=== PATIENT | female | born 1950 | race Caucasian/White ===

== ENCOUNTER 2023-01-10 19:59 | Inpatient (IN) | payer MEDICARE ==
[~2023-01-10] VITALS: Ht 160 cm; Wt 65.3 kg
[2023-01-10 19:33] VITALS: BP 127/75; TEMP 98.2; O2SAT 94
[2023-01-10] MEDS ORDERED: REMEDY ESSENTIAL ZINC PASTE 113 GM TOP PRN (20:15)
[2023-01-10] MEDS ORDERED: ENOX40DI SQ (21:34)
[2023-01-10] MEDS ORDERED: PANT40TA49 PO (21:34)
[2023-01-10] MEDS ORDERED: ACET325T53 PO (21:34)
[2023-01-10] MEDS ORDERED: ASPI81TA31 PO (21:34)
[2023-01-10] MEDS ORDERED: LACT296L PO (21:34)
[2023-01-10] MEDS ORDERED: ZOLP5TAB8 PO (21:34)
[2023-01-10] MEDS ORDERED: MAG30ORA14 (21:34)
[2023-01-10] MEDS ORDERED: MAGN400O6 PO (21:34)
[2023-01-10] MEDS ORDERED: THYR90TA12 PO (21:34)
[2023-01-11] MEDS ORDERED: HYDROCODONE/APAP 5-325MG TABLET PO PRN
[2023-01-11 04:00] VITALS: BP 116/50; TEMP 98.1; O2SAT 95
[2023-01-11 07:46] VITALS: BP 119/61; TEMP 97.7; O2SAT 94
[2023-01-11] MEDS: ENOXAPARIN SODIUM 40 MG/0.4 ML DISP.SYRIN SQ SCH (14:00)
[2023-01-11 15:53] VITALS: BP 125/67; TEMP 97.9; O2SAT 94
[2023-01-11] MEDS: PANTOPRAZOLE SODIUM 40 MG TABLET.DR PO SCH ×2 (17:42→20:51)
[2023-01-11] MEDS: ASPIRIN 81 MG TAB.CHEW PO SCH (17:42)
[2023-01-11] MEDS: ENSURE CLEAR 240 ML LIQUID (MIX BERRY) PO SCH (17:48)
[2023-01-11 20:00] VITALS: BP 131/71; TEMP 98; O2SAT 94
[2023-01-12 04:00] VITALS: BP 128/67; TEMP 98.1; O2SAT 93
[2023-01-12] MEDS: THYROID 60 MG TABLET PO SCH (06:40)
[2023-01-12] MEDS: ASPIRIN 81 MG TAB.CHEW PO SCH (08:47)
[2023-01-12] MEDS: PANTOPRAZOLE SODIUM 40 MG TABLET.DR PO SCH ×2 (08:47→20:57)
[2023-01-12] MEDS: ENOXAPARIN SODIUM 40 MG/0.4 ML DISP.SYRIN SQ SCH (08:48)
[2023-01-12] MEDS: ENSURE CLEAR 240 ML LIQUID (MIX BERRY) PO SCH ×3 (09:10→17:11)
[2023-01-12 18:27] VITALS: TEMP 97.2
[2023-01-12] MEDS: ACETAMINOPHEN 325 MG TABLET PO PRN (19:48)
[2023-01-12 20:00] VITALS: BP 125/70; TEMP 97.8; O2SAT 94
[2023-01-13 04:00] VITALS: BP 120/61; TEMP 97.7; O2SAT 96
[2023-01-13] MEDS: THYROID 60 MG TABLET PO SCH (06:23)
[2023-01-13 07:48] VITALS: BP 109/64; TEMP 97.8; O2SAT 95
[2023-01-13] MEDS: ASPIRIN 81 MG TAB.CHEW PO SCH (09:48)
[2023-01-13] MEDS: PANTOPRAZOLE SODIUM 40 MG TABLET.DR PO SCH ×2 (09:48→20:55)
[2023-01-13] MEDS: ENSURE CLEAR 240 ML LIQUID (MIX BERRY) PO SCH ×3 (09:49→17:21)
[2023-01-13] MEDS: ENOXAPARIN SODIUM 40 MG/0.4 ML DISP.SYRIN SQ SCH (09:55)
[2023-01-13] MEDS ORDERED: SIMETHICONE 40 MG/0.6 ML, 30ML BOTTLE PO PRN (15:00)
[2023-01-13] MEDS ORDERED: SIMETHICONE 80 MG TAB.CHEW PO PRN ×2 (15:30)
[2023-01-13 16:00] VITALS: BP 114/66; TEMP 97.8; O2SAT 96
[2023-01-14 05:08] VITALS: BP 121/67; TEMP 97.6; O2SAT 94
[2023-01-14] MEDS: THYROID 60 MG TABLET PO SCH (06:36)
[2023-01-14 08:00] VITALS: BP 110/62; TEMP 97.8; O2SAT 97
[2023-01-14] MEDS: PANTOPRAZOLE SODIUM 40 MG TABLET.DR PO SCH ×2 (08:34→20:30)
[2023-01-14] MEDS: ASPIRIN 81 MG TAB.CHEW PO SCH (08:34)
[2023-01-14] MEDS: ENOXAPARIN SODIUM 40 MG/0.4 ML DISP.SYRIN SQ SCH (08:35)
[2023-01-14] MEDS: ENSURE CLEAR 240 ML LIQUID (MIX BERRY) PO SCH ×3 (08:42→16:09)
[2023-01-14 16:34] VITALS: BP 116/60; TEMP 98; O2SAT 94
[2023-01-14 19:45] VITALS: BP 116/66; TEMP 97.7; O2SAT 95
[2023-01-15] MEDS: ACETAMINOPHEN 325 MG TABLET PO PRN (03:05)
[2023-01-15 06:00] VITALS: BP 98/56; TEMP 97.8; O2SAT 95
[2023-01-15] MEDS: THYROID 60 MG TABLET PO SCH (06:32)
[2023-01-15 08:00] VITALS: BP 101/55; TEMP 97.6; O2SAT 97
[2023-01-15] MEDS: ASPIRIN 81 MG TAB.CHEW PO SCH (08:08)
[2023-01-15] MEDS: PANTOPRAZOLE SODIUM 40 MG TABLET.DR PO SCH ×2 (08:08→20:31)
[2023-01-15] MEDS: ENOXAPARIN SODIUM 40 MG/0.4 ML DISP.SYRIN SQ SCH (08:09)
[2023-01-15] MEDS: ENSURE CLEAR 240 ML LIQUID (MIX BERRY) PO SCH ×3 (08:10→17:00)
[2023-01-15 16:28] VITALS: BP 99/59; TEMP 98.9; O2SAT 97
[2023-01-15 20:20] VITALS: BP 102/61; TEMP 98.6
[2023-01-16 05:10] VITALS: BP 105/70; TEMP 97.8; O2SAT 96
[2023-01-16] MEDS: THYROID 60 MG TABLET PO SCH (06:13)
[2023-01-16 07:47] VITALS: BP 100/65; TEMP 97.7; O2SAT 96
[2023-01-16 08:00] VITALS: BP 98/60; TEMP 97.5; O2SAT 96
[2023-01-16] MEDS: ENSURE CLEAR 240 ML LIQUID (MIX BERRY) PO SCH ×3 (08:00→17:00)
[2023-01-16] MEDS: ENOXAPARIN SODIUM 40 MG/0.4 ML DISP.SYRIN SQ SCH (10:11)
[2023-01-16] MEDS: PANTOPRAZOLE SODIUM 40 MG TABLET.DR PO SCH ×2 (10:12→20:37)
[2023-01-16] MEDS: ASPIRIN 81 MG TAB.CHEW PO SCH (10:13)
[2023-01-16 15:15] VITALS: BP 122/65; TEMP 98; O2SAT 95
[2023-01-16 20:00] VITALS: BP 110/62; TEMP 98; O2SAT 94
[2023-01-17 04:00] VITALS: BP 101/64; TEMP 98.1; O2SAT 96
[2023-01-17 07:07] LABS: BASOPHILS # (AUTO) 0.1 K/UL (0.0-0.2); EOSINOPHILS # (AUTO) 0.2 K/uL (0.0-0.7); EOSINOPHILS % (AUTO) 1.9 % (0.0-7.0); HEMATOCRIT 34.2 % (31.2-41.9); HEMOGLOBIN 11.7 g/dL (10.9-14.3); LYMPHOCYTES # (AUTO) 1.1 K/uL (0.8-4.8); LYMPHOCYTES % (AUTO) 13.6 % (20.5-51.5); MEAN CORPUSCULAR HEMOGLOBIN 29.7 uug (24.7-32.8); MEAN CORPUSCULAR HGB CONC 34 g/dL (32.3-35.6); MEAN CORPUSCULAR VOLUME 86.8 fL (75.5-95.3); MONOCYTES # (AUTO) 0.6 K/uL (0.1-1.30); MONOCYTES % (AUTO) 7.9 % (0.0-11.0); NEUTROPHILS % (AUTO) 75.6 % (38.5-71.5); PLATELET COUNT (AUTO) 411 K/uL (179-408); RED BLOOD CELL COUNT(AUTO) 3.94 MIL/uL (3.63-4.92); RED CELL DISTRIBUTION WIDTH 13.6 % (12.3-17.7); WHITE BLOOD COUNT (AUTO) 7.9 K/uL (3.8-11.8)
[2023-01-17] MEDS: THYROID 60 MG TABLET PO SCH (07:09)
[2023-01-17 07:11] LABS: DIFFERENTIAL COMMENT 1
[2023-01-17 07:40] LABS: ALANINE AMINOTRANSFERASE 43 U/L (14-59); ALBUMIN 2.8 g/dL (3.4-5.0); ALKALINE PHOSPHATASE 136 U/L (50-136); ASPARTATE AMINOTRANSFERASE 24 U/L (15-37); BILIRUBIN,TOTAL 0.6 mg/dL (0.2-1.0); CALCIUM 8.3 mg/dL (8.5-10.1); CARBON DIOXIDE 29 mmol/L (21-32); CHLORIDE 102 mmol/L (98-107); GLUCOSE 104 mg/dL (74-106); MAGNESIUM 1.7 mg/dL (1.8-2.4); PHOSPHOROUS 4.2 mg/dL (2.5-4.9); POTASSIUM 4.3 mmol/L (3.5-5.1); SODIUM SERUM 139 mmol/L (136-145); TOTAL PROTEIN, SERUM 5.8 g/dL (6.4-8.2); UREA NITROGEN, BLOOD 13 mg/dL (7-18)
[2023-01-17 08:05] VITALS: BP 131/70; TEMP 98.2; O2SAT 96
[2023-01-17] MEDS: ASPIRIN 81 MG TAB.CHEW PO SCH (09:54)
[2023-01-17] MEDS: PANTOPRAZOLE SODIUM 40 MG TABLET.DR PO SCH (09:54)
[2023-01-17] MEDS: ENSURE CLEAR 240 ML LIQUID (MIX BERRY) PO SCH ×3 (09:56→17:47)
[2023-01-17] MEDS: ENOXAPARIN SODIUM 40 MG/0.4 ML DISP.SYRIN SQ SCH (09:56)
[2023-01-17] MEDS ORDERED: MAGNESIUM OXIDE 400 MG TABLET PO ONE (12:45)
[2023-01-17 15:11] VITALS: BP 130/80; TEMP 98; O2SAT 97
[2023-01-17] MEDS ORDERED: PANT40TA49 PO (18:05)
[2023-01-17] MEDS ORDERED: SIME80TA16 PO (18:05)
[2023-01-17] MEDS ORDERED: THYR90TA12 PO (18:05)
== END 2023-01-17 20:26 | disposition home or self-care (01) | DRG 947 ==
LOC: UNDOADMIN 19:59 → MEDSURG3 19:59
PROVIDERS: ADMIT Physical Medicine & Rehabilitation Pain Medicine; ATTEND Physical Medicine & Rehabilitation Pain Medicine
DX: R53.1 Weakness (principal); I21.A1 Myocardial infarction type 2; E44.1 Mild protein-calorie malnutrition; K56.609 Unspecified intestinal obstruction, unspecified as to partial versus complete obstruction; E03.9 Hypothyroidism, unspecified; E88.09 Other disorders of plasma-protein metabolism, not elsewhere classified; Z90.49 Acquired absence of other specified parts of digestive tract; Z48.815 Encounter for surgical aftercare following surgery on the digestive system; E83.42 Hypomagnesemia; Z88.5 Allergy status to narcotic agent; Z91.018 Allergy to other foods; R79.89 Other specified abnormal findings of blood chemistry
CPT/HCPCS: 36415; 83735; 84100; 85025; 97535-GO-CO; A4663; G0378; J1650